=== PATIENT | female | born 2000 | race Caucasian/White ===

== ENCOUNTER 2021-08-25 09:29 | Emergency (ER) | payer OTHER ==
[2021-08-25] MEDS ORDERED: AUGMENTIN 500-1 EACH PO (12:29)
== END 2021-08-25 12:59 | disposition home or self-care (01) ==
LOC: FER 09:29
DX: S00.93XD Contusion of unspecified part of head, subsequent encounter (principal); J32.0 Chronic maxillary sinusitis; I10 Essential (primary) hypertension; Z28.310 Unvaccinated for COVID-19; Z88.8 Allergy status to other drugs, medicaments and biological substances; W22.8XXD Striking against or struck by other objects, subsequent encounter
CPT/HCPCS: 70450; 70486